=== PATIENT | male | born 1950 | race Caucasian/White ===

== ENCOUNTER 2022-08-13 20:40 | Inpatient (IN) | payer MEDICARE ==
[~2022-08-13 20:40] MED LIST: REMDESIVIR 200 MG in Sodium Chloride 0.9% 250 ML 210 ML IV SCH
[2022-08-13] MEDS ORDERED: Acetaminophen 325 MG TAB ONE (21:23)
[2022-08-13 21:40] LABS: #Basophils 0.1 10x3/uL (0.0-0.2); #Eosinphils 0.2 10x3/uL (0.0-0.5); #Monocytes 0.9 10x3/uL (0.0-1.1); %Basophils 0.4 % (0.0-2.0); %Eosinophils 1.5 % (0.0-6.0); %Monocytes 6.8 % (0.0-10.0); %Neutrophils 84.9 % (40.0-75.0); Hemoglobin 14.7 g/dL (13.5-17.5); Mean Corpuscular HGB CONC 35.3 g/dL (32.0-36.0); Mean Corpuscular Volume 90.6 fl (81.2-95.1); Mean Platelet Volume 9.7 fl (7.4-10.4); Platelet Count 220 10x3/uL (150-450); RBC Distribution Width 12.1 % (11.5-14.5); Red Blood Cell (RBC) Count 4.59 10x6/uL (4.32-5.72); White Blood Cell (WBC) Count 12.9 10x3/uL (3.5-10.5)
[2022-08-13 21:55] LABS: ALT (SGPT) 38 U/L (8-55); AST (SGOT) 57 U/L (5-34); Albumin 4.2 g/dL (3.4-4.8); Alkaline Phosphatase 57 U/L (40-110); Anion Gap 15 mmol/L (10-20); BUN (Urea Nitrogen) 14 mg/dL (8.4-25.7); Bilirubin, Total 0.6 mg/dL (0.2-1.2); Calc. Creatinine Clearance 0 mL/min (70-130); Calcium 9.2 mg/dL (7.8-10.44); Carbon Dioxide 27 mmol/L (23-31); Chloride 100 mmol/L (98-107); Estimated GFR 77; Globulin 3.2 g/dL (2.4-3.5); Glucose 118 mg/dL (83-110); Potassium 3.5 mmol/L (3.5-5.1); Protein, Total 7.4 g/dL (5.8-8.1); Sodium 138 mmol/L (136-145)
[2022-08-13 21:59] LABS: SARS-CoV-2 NAA Rapid Test DETECTED (NotDetected)
[2022-08-13] MEDS ORDERED: Dexamethasone 10 MG/ML VIAL ONE (22:13)
[2022-08-13 22:18] LABS: CKMB 1.7 ng/mL (0-6.6)
[2022-08-13] MEDS ORDERED: Acetaminophen 325 MG TAB PO PRN (23:16)
[2022-08-13] MEDS ORDERED: Ventolin HFA Inhaler 60 PUFF INHALER INH PRN (23:26)
[2022-08-13] MEDS ORDERED: Pharmacy to Dose REMDESIVIR IVPB PRN (23:37)
[2022-08-13] MEDS ORDERED: Aspirin 325 MG TAB PO SCH (23:45)
[2022-08-13] MEDS ORDERED: Potassium Chloride 20 MEQ TAB PO SCH (23:45)
[2022-08-14 00:03] LABS: Magnesium 1.3 mg/dL (1.6-2.6)
[2022-08-14 00:17] LABS: Bilirubin 1+ (Negative); Blood, Urine 150 (Negative); Clarity Clear (Clear); Glucose, Urine (Dipstick) Normal (Negative); Ketone, Urine 15 mg/dL (Negative); Leukocyte 25 (Negative); Nitrite Negative (Negative); Protein, Urine (Dipstick) 30 mg/dl (Neg-Trace); Specific Gravity, Urine 1.025 (1.005-1.030)
[2022-08-14 00:26] LABS: Bacteria/HPF Rare-Few HPF (None Seen); Squamous Epithelial 0-3 HPF (0-3); WBC/HPF 0-3 HPF (0-3)
[2022-08-14 00:45] LABS: Troponin I 0.012 ng/mL (< 0.028)
[2022-08-14] MEDS ORDERED: Cholecalciferol 1,000 UNITS (25 MCG) TAB ONE (01:48)
[2022-08-14] MEDS ORDERED: Ascorbic Acid 500 mg Chewable Tablet ONE (01:48)
[2022-08-14] MEDS ORDERED: Aspirin 325 mg Enteric Coated Tablet ONE (01:48)
[2022-08-14] MEDS ORDERED: Potassium Chloride 20 MEQ TAB ONE (01:48)
[2022-08-14] MEDS ORDERED: Zinc Sulfate 220 MG CAP ONE (01:49)
[2022-08-14] MEDS: Ascorbic Acid 500 mg Chewable Tablet PO SCH ×2 (01:55→23:23)
[2022-08-14] MEDS: Cholecalciferol 1,000 UNITS (25 MCG) TAB PO SCH ×2 (01:56→23:23)
[2022-08-14] MEDS: Zinc Sulfate 220 MG CAP PO SCH ×2 (01:56→23:23)
[2022-08-14 03:42] LABS: #Eosinphils 0.2 10x3/uL (0.0-0.5); #Monocytes 0.4 10x3/uL (0.0-1.1); #Neutrophils 11.5 10x3/uL (1.5-8.4); %Basophils 0.1 % (0.0-2.0); %Eosinophils 1.5 % (0.0-6.0); %Monocytes 3.1 % (0.0-10.0); %Neutrophils 85.9 % (40.0-75.0); Hemoglobin 15.1 g/dL (13.5-17.5); Mean Corpuscular HGB CONC 34.6 g/dL (32.0-36.0); Mean Corpuscular Hemoglobin 31.9 pg (27.0-33.0); Mean Platelet Volume 9.6 fl (7.4-10.4); Platelet Count 223 10x3/uL (150-450); RBC Distribution Width 12.1 % (11.5-14.5); Red Blood Cell (RBC) Count 4.74 10x6/uL (4.32-5.72); White Blood Cell (WBC) Count 13.4 10x3/uL (3.5-10.5)
[2022-08-14 03:52] LABS: Anion Gap 15 mmol/L (10-20); BUN (Urea Nitrogen) 15 mg/dL (8.4-25.7); CRP (Inflammatory) 8.37 mg/dL (= or < 0.5); Calc. Creatinine Clearance 0 mL/min (70-130); Calcium 9.2 mg/dL (7.8-10.44); Carbon Dioxide 26 mmol/L (23-31); Chloride 101 mmol/L (98-107); Estimated GFR 75; Glucose 193 mg/dL (83-110); Potassium 3.8 mmol/L (3.5-5.1); Sodium 138 mmol/L (136-145)
[2022-08-14 03:57] LABS: Troponin I 0.013 ng/mL (< 0.028)
[2022-08-14] MEDS ORDERED: REMDESIVIR 200 MG in Sodium Chloride 0.9% 250 ML 210 ML IV SCH (04:30)
[2022-08-14] MEDS ORDERED: Diltiazem 125 MG/25 ML ONE (06:52)
[2022-08-14] MEDS ORDERED: Diltiazem 125 MG, Admixture Fee 1 EACH in Sodium Chloride 0.9% 100 ML IVPB SCH (07:00)
[2022-08-14] MEDS ORDERED: Potassium Chloride 20 MEQ in Lactated Ringer's 1,000 ML IV SCH (07:00)
[2022-08-14] MEDS ORDERED: Dextrose 5% in Water 1,000 ML IV PRN (07:01)
[2022-08-14] MEDS ORDERED: Dextrose 50% Abboject 50 ML SYRINGE SLOW IVP PRN (07:01)
[2022-08-14] MEDS ORDERED: HumaLOG 300 UNITS/3 ML VIAL SC PRN (07:01)
[2022-08-14] MEDS ORDERED: Diltiazem 125 MG in Sodium Chloride 0.9% 100 ML IVPB SCH (07:15)
[2022-08-14] MEDS ORDERED: Enoxaparin Sodium 100 MG/ML SYRINGE ONE ×2 (08:26→20:44)
[2022-08-14] MEDS: Enoxaparin Sodium 100 MG/ML SYRINGE SC SCH ×2 (08:50→20:46)
[2022-08-14] MEDS ORDERED: Enoxaparin Sodium 40 MG/0.4 ML SYRINGE SC SCH (09:00)
[2022-08-14] MEDS ORDERED: Dexamethasone 10 MG/ML VIAL ONE (10:05)
[2022-08-14] MEDS: Citalopram 20 MG TAB PO SCH (11:07)
[2022-08-14] MEDS: Dexamethasone 4 mg/ml Vial SLOW IVP SCH (11:08)
[2022-08-14] MEDS ORDERED: FLU VACC QS2022-23(65YR UP)/PF 240 MCG/0.7 ML SYRINGE IM ONE (22:45)
[2022-08-14] MEDS: Aspirin 81 mg Enteric Coated Tablet PO SCH (23:23)
[2022-08-14] MEDS: Atorvastatin Calcium 20 MG TAB PO SCH (23:24)
[2022-08-14 23:25] VITALS: BMI 30.2
[2022-08-15] MEDS ORDERED: Melatonin 3 MG TAB PO SCH ×2 (01:30→21:30)
[2022-08-15] MEDS: REMDESIVIR 100 MG in Sodium Chloride 0.9% 250 ML 230 ML IV SCH (05:02)
[2022-08-15 06:59] LABS: Anion Gap 13 mmol/L (10-20); BUN (Urea Nitrogen) 20 mg/dL (8.4-25.7); Calc. Creatinine Clearance 99 mL/min (70-130); Calcium 8.4 mg/dL (7.8-10.44); Carbon Dioxide 23 mmol/L (23-31); Chloride 106 mmol/L (98-107); Estimated GFR 92; Glucose 117 mg/dL (83-110); Magnesium 1.8 mg/dL (1.6-2.6); Potassium 4.2 mmol/L (3.5-5.1); Sodium 138 mmol/L (136-145)
[2022-08-15 07:01] LABS: Troponin I Less than 0.010 ng/mL (< 0.028)
[2022-08-15 08:21] LABS: CRP (Inflammatory) 6.78 mg/dL (= or < 0.5)
[2022-08-15] MEDS: Citalopram 20 MG TAB PO SCH (09:39)
[2022-08-15] MEDS: Dexamethasone 4 mg/ml Vial SLOW IVP SCH (09:39)
[2022-08-15] MEDS: Enoxaparin Sodium 100 MG/ML SYRINGE SC SCH (09:41)
[2022-08-15] MEDS: Apixaban 5 MG TAB PO SCH ×2 (09:56→21:53)
[2022-08-15] MEDS: Atorvastatin Calcium 20 MG TAB PO SCH (21:52)
[2022-08-15] MEDS: Aspirin 81 mg Enteric Coated Tablet PO SCH ×2 (21:53→22:00)
[2022-08-15] MEDS: Zinc Sulfate 220 MG CAP PO SCH (23:30)
[2022-08-15] MEDS: Ascorbic Acid 500 mg Chewable Tablet PO SCH (23:31)
[2022-08-15] MEDS: Cholecalciferol 1,000 UNITS (25 MCG) TAB PO SCH (23:31)
[2022-08-16] MEDS: REMDESIVIR 100 MG in Sodium Chloride 0.9% 250 ML 230 ML IV SCH (05:03)
[2022-08-16 06:13] LABS: ALT (SGPT) 40 U/L (8-55); AST (SGOT) 82 U/L (5-34); Albumin 3.6 g/dL (3.4-4.8); Alkaline Phosphatase 50 U/L (40-110); Anion Gap 12 mmol/L (10-20); BUN (Urea Nitrogen) 19 mg/dL (8.4-25.7); Bilirubin, Total 0.5 mg/dL (0.2-1.2); CRP (Inflammatory) 3.01 mg/dL (= or < 0.5); Calc. Creatinine Clearance 99 mL/min (70-130); Calcium 8.7 mg/dL (7.8-10.44); Carbon Dioxide 28 mmol/L (23-31); Chloride 103 mmol/L (98-107); Estimated GFR 92; Globulin 2.9 g/dL (2.4-3.5); Glucose 119 mg/dL (83-110); Potassium 3.8 mmol/L (3.5-5.1); Protein, Total 6.5 g/dL (5.8-8.1); Sodium 139 mmol/L (136-145)
[2022-08-16] MEDS: Dexamethasone 4 mg/ml Vial SLOW IVP SCH (09:45)
[2022-08-16] MEDS: Apixaban 5 MG TAB PO SCH ×2 (09:48→21:40)
[2022-08-16] MEDS: Citalopram 20 MG TAB PO SCH (12:41)
[2022-08-16] MEDS: Atorvastatin Calcium 20 MG TAB PO SCH (21:40)
[2022-08-16] MEDS: Aspirin 81 mg Enteric Coated Tablet PO SCH (21:40)
[2022-08-17] MEDS: Cholecalciferol 1,000 UNITS (25 MCG) TAB PO SCH ×2 (00:38→21:11)
[2022-08-17] MEDS: Ascorbic Acid 500 mg Chewable Tablet PO SCH ×2 (00:38→21:11)
[2022-08-17] MEDS: Zinc Sulfate 220 MG CAP PO SCH ×2 (00:39→21:11)
[2022-08-17] MEDS: REMDESIVIR 100 MG in Sodium Chloride 0.9% 250 ML 230 ML IV SCH (04:59)
[2022-08-17 07:21] LABS: ALT (SGPT) 46 U/L (8-55); AST (SGOT) 79 U/L (5-34); Albumin 3.7 g/dL (3.4-4.8); Alkaline Phosphatase 50 U/L (40-110); Anion Gap 13 mmol/L (10-20); BUN (Urea Nitrogen) 20 mg/dL (8.4-25.7); Bilirubin, Total 0.7 mg/dL (0.2-1.2); Calc. Creatinine Clearance 96 mL/min (70-130); Calcium 8.7 mg/dL (7.8-10.44); Carbon Dioxide 28 mmol/L (23-31); Chloride 101 mmol/L (98-107); Estimated GFR 91; Globulin 3.3 g/dL (2.4-3.5); Glucose 102 mg/dL (83-110); Potassium 4.1 mmol/L (3.5-5.1); Sodium 138 mmol/L (136-145)
[2022-08-17] MEDS: Dexamethasone 4 mg/ml Vial SLOW IVP SCH (08:55)
[2022-08-17] MEDS: Apixaban 5 MG TAB PO SCH ×2 (08:59→21:10)
[2022-08-17] MEDS: Citalopram 20 MG TAB PO SCH (08:59)
[2022-08-17] MEDS: Atorvastatin Calcium 20 MG TAB PO SCH (21:10)
[2022-08-17] MEDS: Aspirin 81 mg Enteric Coated Tablet PO SCH (21:11)
[2022-08-18] MEDS: REMDESIVIR 100 MG in Sodium Chloride 0.9% 250 ML 230 ML IV SCH (05:07)
[2022-08-18 06:10] LABS: ALT (SGPT) 53 U/L (8-55); AST (SGOT) 62 U/L (5-34); Albumin 3.6 g/dL (3.4-4.8); Alkaline Phosphatase 54 U/L (40-110); Anion Gap 14 mmol/L (10-20); BUN (Urea Nitrogen) 18 mg/dL (8.4-25.7); Bilirubin, Total 0.6 mg/dL (0.2-1.2); Calc. Creatinine Clearance 103 mL/min (70-130); Calcium 8.5 mg/dL (7.8-10.44); Carbon Dioxide 26 mmol/L (23-31); Chloride 102 mmol/L (98-107); Estimated GFR 93; Globulin 2.7 g/dL (2.4-3.5); Glucose 107 mg/dL (83-110); Potassium 3.9 mmol/L (3.5-5.1); Protein, Total 6.3 g/dL (5.8-8.1); Sodium 138 mmol/L (136-145)
[2022-08-18] MEDS: Apixaban 5 MG TAB PO SCH (09:51)
[2022-08-18] MEDS: Citalopram 20 MG TAB PO SCH (09:51)
[2022-08-18] MEDS: Dexamethasone 4 mg/ml Vial SLOW IVP SCH (09:51)
[2022-08-18 12:11] VITALS: BP 135/85; TEMP 98.4
== END 2022-08-18 12:00 | disposition home or self-care (01) | DRG 177 ==
LOC: CSHERS 20:40 → CSHERHOLD 23:15 → CSHICU 08-14 17:02 → CSHERHOLD 08-14 18:38 → CSHTELE 08-14 22:14
PROVIDERS: ADMIT Family Medicine; ATTEND Family Medicine
PROC: XW033E5 Introduction of Remdesivir Anti-infective into Peripheral Vein, Percutaneous Approach, New Technology Group 5 (ICD-10-PCS; principal; 2022-08-13)
PROC: 3E0333Z Introduction of Anti-inflammatory into Peripheral Vein, Percutaneous Approach (ICD-10-PCS; 2022-08-13)
PROC: 8E0ZXY6 Isolation (ICD-10-PCS; 2022-08-13)
DX: U07.1 COVID-19 (principal); J12.82 Pneumonia due to coronavirus disease 2019; J96.01 Acute respiratory failure with hypoxia; I48.92 Unspecified atrial flutter; K21.9 Gastro-esophageal reflux disease without esophagitis; I10 Essential (primary) hypertension; E78.5 Hyperlipidemia, unspecified; F43.10 Post-traumatic stress disorder, unspecified; F41.9 Anxiety disorder, unspecified; R77.8 Other specified abnormalities of plasma proteins; I48.0 Paroxysmal atrial fibrillation; Z87.891 Personal history of nicotine dependence; Z79.899 Other long term (current) drug therapy; Z90.49 Acquired absence of other specified parts of digestive tract; Z88.0 Allergy status to penicillin
CPT/HCPCS: 36415; 36416; 71045; 80048; 80053; 81003; 81015; 82553; 83605; 83735; 83880; 84443; 84484; 85025; 86140; 87040; 87086; 93005; 94760; 96374; J0248; J1100; J1650; J1815; J7050

== ENCOUNTER 2023-06-30 15:02 | Emergency (ER) | payer MEDICARE, OTHER ==
[2023-06-30 15:59] LABS: #Basophils 0.1 10x3/uL (0.0-0.2); #Eosinphils 0.1 10x3/uL (0.0-0.5); #Monocytes 0.8 10x3/uL (0.0-1.1); #Neutrophils 5.2 10x3/uL (1.5-8.4); %Basophils 0.5 % (0.0-2.0); %Eosinophils 1.4 % (0.0-6.0); %Lymphocytes 36.4 % (18.0-47.0); %Monocytes 7.8 % (0.0-10.0); %Neutrophils 53.6 % (40.0-75.0); Hematocrit 42.8 % (38.8-50.0); Hemoglobin 14.7 g/dL (13.5-17.5); Mean Corpuscular HGB CONC 34.3 g/dL (32.0-36.0); Mean Corpuscular Hemoglobin 30.4 pg (27.0-33.0); Mean Corpuscular Volume 88.4 fl (81.2-95.1); Mean Platelet Volume 9.1 fl (7.4-10.4); Platelet Count 318 10x3/uL (150-450); RBC Distribution Width 12.3 % (11.5-14.5); Red Blood Cell (RBC) Count 4.84 10x6/uL (4.32-5.72); White Blood Cell (WBC) Count 9.8 10x3/uL (3.5-10.5)
[2023-06-30 16:14] LABS: ALT (SGPT) 24 U/L (8-55); AST (SGOT) 23 U/L (5-34); Albumin 4.2 g/dL (3.4-4.8); Alkaline Phosphatase 71 U/L (40-110); Anion Gap 12 mmol/L (10-20); BUN (Urea Nitrogen) 13 mg/dL (8.4-25.7); Bilirubin, Total 0.6 mg/dL (0.2-1.2); Calc. Creatinine Clearance 0 mL/min (70-130); Carbon Dioxide 29 mmol/L (23-31); Chloride 104 mmol/L (98-107); Estimated GFR 79; Globulin 2.9 g/dL (2.4-3.5); Glucose 100 mg/dL (83-110); Lipase 25 U/L (8-78); Potassium 3.9 mmol/L (3.5-5.1); Protein, Total 7.1 g/dL (5.8-8.1); Sodium 141 mmol/L (136-145)
[2023-06-30 16:22] LABS: Troponin I 0.021 ng/mL (< 0.028)
[2023-06-30 16:43] LABS: SARS-CoV-2 NAA Rapid Test Not Detected (NotDetected)
[2023-06-30 17:36] LABS: Bilirubin Neg (Negative); Blood, Urine 10 (Negative); Clarity Clear (Clear); Glucose, Urine (Dipstick) Normal (Negative); Ketone, Urine Negative (Negative); Leukocyte Negative (Negative); Nitrite Negative (Negative); Protein, Urine (Dipstick) Negative (Neg-Trace); Specific Gravity, Urine 1.015 (1.005-1.030)
[2023-06-30 18:01] LABS: Bacteria/HPF Rare-Few HPF (None Seen); CAUTI Indications for Culture Alt mental st,lethar; RBC/HPF 0-3 HPF (0-3); Squamous Epithelial 0-3 HPF (0-3); WBC/HPF 0-3 HPF (0-3)
[2023-06-30 18:02] LABS: Urine Culture Reflex No No
== END 2023-06-30 18:23 | disposition home or self-care (01) ==
LOC: CSHERS 15:02
DX: I10 Essential (primary) hypertension (principal); Z20.822 Contact with and (suspected) exposure to COVID-19; Z87.891 Personal history of nicotine dependence
CPT/HCPCS: 71045; 80053; 81001; 83690; 83880; 84484; 85025; 93005

== ENCOUNTER 2024-07-13 03:41 | Emergency (ER) | payer OTHER ==
[2024-07-13] MEDS ORDERED: Ipratropium/Albuterol 3 ML NEB ONE (04:05)
== END 2024-07-13 04:55 | disposition home or self-care (01) ==
LOC: CSHERS 03:41
DX: J10.1 Influenza due to other identified influenza virus with other respiratory manifestations (principal); I10 Essential (primary) hypertension; Z87.891 Personal history of nicotine dependence